=== PATIENT | male | born 1955 | race Caucasian/White ===

== ENCOUNTER → 2018-08-26 | Outpatient (REF) ==
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
== END ==
LOC: RAD 22:19
DX: S09.8XXA Other specified injuries of head, initial encounter (principal)
CPT/HCPCS: 70250